=== PATIENT | female | born 1960 | race Caucasian/White ===

== ENCOUNTER 2019-05-16 21:24 | Emergency (ER) | payer MEDICARE, MEDICAID, SELFPAY ==
--- NOTE | 2019-05-16 21:29 | ED_ITS ---
Entered by Vonda Tarango, acting as scribe for Aracely Bella HPI - Fall General: Chief Complaint: Fall Stated Complaint: FALL Time Seen by Provider: 05/16/19 21:26 Source: family and EMS Mode of arrival: EMS Limitations: altered mental status and physical limitation History of Present Illness: HPI Narrative: Tarsha is a 59-year-old female with severe dementia that is brought in by her daughters after she fell at the skilled nursing. Apparently she got set too far forward and went straight down on her head and hit the ground. It was witnessed and she had no loss of consciousness. She is not vomited. According to her daughters she has acted normal or her normal since this time. The skilled nursing wanted her evaluated here to evaluate for any injuries. The patient cannot give any history as she is severely demented. 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) Fall from: wheelchair Fall witnessed: yes, by living facility staff (skilled nursing [facility]) Place fall occurred: skilled nursing/SNF Loss of consciousness: None Symptoms prior to fall: none Review of Systems General: Reports: ROS unobtainable due to medical condition (Dementia) Physical Exam Narrative: EXAM NARRATIVE: contracted on side chronic Const: COMMON NORMALS: no apparent distress, no limitations, healthy appearing and well nourished EXAM LIMITATIONS: no altered mental status GENERAL APPEARANCE: cooperative, well kempt and well developed ORIENTATION/CONSCIOUSNESS: Yes awake HENMT: COMMON NORMALS: normocephalic, head/scalp atraumatic, hearing grossly normal bilaterally, external ears normal, EAC's normal, external nose normal and moist oral mucous membranes HEAD & SCALP: normal to inspection, normocephalic and atraumatic FACE & SINUS: normal facial exam and face symmetric NOSE: external nose normal and nares normal EXTERNAL EAR: Yes external ears normal EXTERNAL AUDITORY CANAL: EAC's normal MOUTH: oral and palatal mucosa normal and tongue normal Eye: COMMON NORMALS: PERRL, EOMs intact bilaterally, conjunctivae normal and no scleral icterus GENERAL EYE: normal appearance of both eyes and normal light reflex CONJUNCTIVA: Yes conjunctivae normal SCLERA: sclerae normal CORNEA: Yes corneas normal PUPIL: Yes PERRL DIRECT OPHTHALMOSCOPY: Yes normal light reflex Neck/C-Spine: COMMON NORMALS: full ROM, no lymphadenopathy, supple, no meningeal signs and no JVD GENERAL: Yes normal visual inspection and Yes trachea midline CERVICAL SPINE: Yes cervical ROM normal Chest: COMMONS NORMALS: inspection of chest normal and palpation of chest norm al Resp: COMMON NORMALS: normal respiratory effort, no retractions, no use of accessory muscles and clear to auscultation bilaterally EFFORT & INSPECTION: Yes able to speak in complete sentences AUSCULTATION: clear to auscultation bilaterally Cardio: COMMON NORMALS: no JVD, regular rate, regular rhythm, S1 normal heart sound, S2 normal heart sound, no gallops, no clicks, no murmurs and no rub JUGULAR VENOUS DISTENTION: no JVD RATE: regular rate RHYTHM: regular rhythm HEART SOUNDS: S1 normal and S2 normal GI: COMMON NORMALS: soft to palpation, non-tender, no hepatosplenomegaly and no masses INSPECTION: Yes normal to inspection PALPATION: Yes soft and Yes no hepatosplenomegaly : COMMON NORMALS: Yes no CVA tenderness BLADDER/KIDNEY EXAM: Yes no CVA tenderness Back/Pelvis: COMMON NORMALS: no CVA tenderness, thoracic and lumbar spine normal to inspection, no thoracic nor lumbar tenderness and thoraco-lumbar ROM normal Extremity: COMMON NORMALS: normal to inspection, full ROM, normal capillary refill, no joint enlargement, no clubbing, cyanosis or edema and no calf tenderness Neuro: COMMON NORMALS: CN's II-XII intact bilaterally, moves all extremities, no focal motor deficits and no sensory deficits noted MENINGEAL SIGNS: Yes no meningeal signs Psych: COMMON NORMALS: mental status grossly normal, thought process normal, cooperative, affect normal, speech normal and activity/motor behavior normal APPEARANCE: Yes well kempt SPEECH: Yes normal speech THOUGHT PROCESS: normal thought process Skin: COMMON NORMALS: no rashes or lesions noted, skin turgor normal, no jaundice, no petechiae and no mottling GENERAL SKIN EXAM: no rashes or lesions noted and turgor normal Course Vital Signs: Vital signs: Vital Signs Temperature 97.4 F L 05/16/19 21:56 Pulse Rate 64 05/16/19 22:00 Respiratory Rate 16 05/16/19 22:00 Blood Pressure 101/77 05/16/19 22:00 Pulse Oximetry 100 05/16/19 22:00 MDM - Fall MDM Narrative: Medical decision making narrative: The patient has no sign or symptom of injury on exam or per her CT or x-rays. Her family is relieved to hear this. They agree with letting her go back to the skilled nursing. Imaging Data^: CXR: My impression: No acute cardiopulmonary findings Other Xray: My impression: Pelvis -no acute fractures or dislocations CT Head: Radiologist's impression: [address] [address] [address] Scan Report Signed Patient: Tarsha Schmidt Unit #: [id number] : 1960 Age/Sex: 59 / F ADM Date: 05/16/19 Loc: ER Room/Bed: Attending Dr: Ordering Provider/Ordering MD: Aracely Bella DO Date of Service: 05/16/19 Procedure(s): CT head wo con* [id number] Accession Number(s): [id number] Report Number: [id number] PROCEDURE INFORMATION: Exam: CT Head Without Contrast Exam date and time: 05/16/2019 9:57 PM Age: 59 years old Clinical indication: Injury or trauma; Fall; Initial encounter; Concussion / head injury; Additional info: Ansari/ams TECHNIQUE: Imaging protocol: Computed tomography of the head without contrast. Total DLP: 1144.96 mGy-cm Radiation optimization: All CT scans at this facility use at least one of these dose optimization techniques: automated exposure control; mA and/or kV adjustment per patient size (includes targeted exams where dose is matched to clinical indication); or iterative reconstruction. COMPARISON: CT head wo con* [id number] 11/04/2018 8:37 AM FINDINGS: Brain: Moderate diffuse cortical volume loss. Moderate-severe hypodensities in supratentorial periventricular and subcortical white matter. No intracranial hemorrhage. Ventricles: Stable enlargement of the 3rd and lateral ventricles including the temporal horns. Bones/joints: Unremarkable. No acute fracture. Sinuses: Visualized sinuses are unremarkable. No fluid levels. Mastoid air cells: Visualized mastoid air cells are well aerated. Soft tissues: Calcified sebaceous cysts in the scalp. CT/CT head wo con* [id number] IMPRESSION: 1. No acute intracranial abnormality identified. 2. Moderate-severe microangiopathy. 3. Stable enlargement of the ventricles could represent central atrophy versus normal pressure hydrocephalus. Radiation Dose CTDIVOL = (mGy): DLP = 1144.96 (mGy-cm) Dictated By: Alberto Fitch Signed By: Alberto Fitch Signed Date/Time: 05/16/192233 DD/ 32 Discharge Plan Discharge Patient Disposition: [facility] Clinical Impression: Fall Qualifiers: Encounter type: initial encounter Qualified Code(s): W19.XXXA - Unspecified fall, initial encounter Condition: Stable Prescriptions: No Action multivitamin Tablet 1 tab PO DAILY RF: 0 divalproex 250 mg Tablet,Delayed Release (Dr/Ec) 250 mg PO BID RF: 0 donepezil 10 mg Tablet 10 mg PO DAILY RF: 0 Senna-S 8.6-50 mg Tablet 8.6 - 50 tab PO BID PRN (Reason: Constipation) RF: 0 Xanax 0.5 mg Tablet 0.5 mg PO BID RF: 0 venlafaxine 50 mg Tablet 150 mg PO BID RF: 0 docusate sodium 100 mg Tablet 100 mg PO BID RF: 0 levetiracetam 100 mg/mL Solution 750 mg PO BID RF: 0 memantine 10 mg Tablet 10 mg PO BID RF: 0 quetiapine 50 mg Tablet 50 mg PO DAILY RF: 0 Discharge Orders: Discharge Order (Routine); Ordered 05/16/19 Ordered By: Aracely Bella Referrals: Kit Valenzuela [Primary Care Provider] - 4-7 days Discharge Diet: Usual diet Discharge Activity: Resume usual activity Patient Instructions: Concussion (ED) Activity Restrictions/Additional Instructions: Please return to the ER immediately for any of the signs or symptoms listed on your discharge instruction sheets, worsening/changing of your symptoms, you are not getting better as quickly as expected, or for ANY other cause or concerns. Coding Level of Care Code ED Community Engagement Leader for Chg Fwd Exam Problem Focused The documentation recorded by the Sukhdeep mccann Bridget Annette, accurately reflects the service I personally performed and the decisions made by Shayne major Eli N
--- NOTE | 2019-05-16 21:34 | XR_ITS ---
WS: [id number] Pelvis, AP view, 05/16/2019 Clinical Data: FALL Comparison: None. Findings: No fractures or dislocations are seen. The SI joints and pubic symphysis are intact. The soft tissues are not remarkable. The hips show no fracture There is a large amount of fecal material in the colon. XR/XR pelvis 1-2V* [id number] Impression: Negative for fracture.
--- NOTE | 2019-05-16 21:34 | XR_ITS ---
WS: [id number] Portable AP supine chest, 05/16/2019 Clinical Data: cough Comparison: Portable chest, 11/04/2018. Findings: No nodules, masses or effusions are seen. The heart is normal. The pulmonary vascularity is not increased. No pneumonia or pneumothorax is seen. The aortic arch and descending aorta are tortuo us. XR/XR chest 1V portable [id number] Impression: Atherosclerosis.
--- NOTE | 2019-05-16 21:34 | CTR_ITS ---
PROCEDURE INFORMATION: Exam: CT Head Without Contrast Exam date and time: 05/16/2019 9:57 PM Age: 59 years old Clinical indication: Injury or trauma; Fall; Initial encounter; Concussion / head injury; Additional info: Ansari/ams TECHNIQUE: Imaging protocol: Computed tomography of the head without contrast. Total DLP: 1144.96 mGy-cm Radiation optimization: All CT scans at this facility use at least one of these dose optimization techniques: automated exposure control; mA and/or kV adjustment per patient size (includes targeted exams where dose is matched to clinical indication); or iterative reconstruction. COMPARISON: CT head wo con* [id number] 11/04/2018 8:37 AM FINDINGS: Brain: Moderate diffuse cortical volume loss. Moderate-severe hypodensities in supratentorial periventricular and subcortical white matter. No intracranial hemorrhage. Ventricles: Stable enlargement of the 3rd and lateral ventricles including the temporal horns. Bones/joints: Unremarkable. No acute fracture. Sinuses: Visualized sinuses are unremarkable. No fluid levels. Mastoid air cells: Visualized mastoid air cells are well aerated. Soft tissues: Calcified sebaceous cysts in the scalp. CT/CT head wo con* [id number] IMPRESSION: 1. No acute intracranial abnormality identified. 2. Moderate-severe microangiopathy. 3. Stable enlargement of the ventricles could represent central atrophy versus normal pressure hydrocephalus. Radiation Dose CTDIVOL = (mGy): DLP = 1144.96 (mGy-cm)
--- NOTE | 2019-05-16 21:40 | PC.NURSE ---
Introduced self to patient and initiated vital signs. Pt is non-verbal and in contracted stated. Pt daughter states that the reason for the ER visit today is due to patient falling onto her head from wheel chair while in NH. Reassured patient of needs and will continue to monitor.
[2019-05-16 21:56] VITALS: BP 101/77; PULSE 52; RESP 16; TEMP 36.3; O2SAT 97; BMI 18.5
[2019-05-16 22:00] VITALS: BP 101/77; PULSE 64; RESP 16; O2SAT 100
[2019-05-17 02:00] VITALS: BP 110/64; PULSE 65; RESP 18; O2SAT 97
--- NOTE | 2019-05-17 02:26 | PC.NURSE ---
EMS is on site for transport.
== END 2019-05-17 02:27 | disposition skilled nursing facility (03) ==
PROVIDERS: Emergency Provider Emergency Medicine; Family Provider Family Medicine; PCP Family Medicine
DX: R41.82 Altered mental status, unspecified (principal); W19.XXXA Unspecified fall, initial encounter; Y92.129 Unspecified place in nursing home as the place of occurrence of the external cause
CPT/HCPCS: 70450; 71045; 72170; 96372; 99281; 99283

== ENCOUNTER 2020-04-14 08:22 | Inpatient (IN) | payer MEDICARE, MEDICAID, SELFPAY ==
[2020-04-14] VITALS (9 sets, daily range): BP systolic 95–130; BP diastolic 71–92; PULSE 86–102; RESP 15–18; TEMP 36.7–37.1; O2SAT 92–98; BMI 13.7
--- NOTE | 2020-04-14 08:32 | CTR_ITS ---
PROCEDURE INFORMATION: Exam: CT Head Without Contrast Exam date and time: 04/14/2020 8:37 AM Age: 60 years old Clinical indication: Other: AMS, low BP, low o2 TECHNIQUE: Imaging protocol: Computed tomography of the head without contrast. Radiation optimization: All CT scans at this facility use at least one of these dose optimization techniques: automated exposure control; mA and/or kV adjustment per patient size (includes targeted exams where dose is matched to clinical indication); or iterative reconstruction. COMPARISON: CT head wo con* [id number] 05/16/2019 10:10 PM RADIATION DOSE METRICS: Total DLP (mGy-cm): 719.79 FINDINGS: Brain: There is no acute intracranial hemorrhage. There is lucency in the cerebral white matter, likely microvascular disease although non-specific. Guerra white differentiation is intact. There are no extra-axial fluid collections. No evidence of mass. There is no mass effect or midline shift. Cerebral ventricles: The ventricles and sulci are enlarged, consistent with volume loss / atrophy, greater than expected for age in slightly greater centrally but stable. Bones/joints: No acute fracture. Paranasal sinuses: Visualized sinuses are unremarkable. No fluid levels. Mastoid air cells: No significant mastoid effusion. Vasculature: There is vascular calcification. Soft tissues: Multiple scalp lesions likely sebaceous cyst. CT/CT head wo con* [id number] IMPRESSION: 1. No evidence of acute intracranial abnormality. No evidence of acute infarction, hemorrhage, or mass. 2. Atrophy and microvascular disease. Radiation Dose CTDIVOL = (mGy): DLP = 719.79 (mGy-cm)
--- NOTE | 2020-04-14 08:32 | XR_ITS ---
WS: [id number] Exam: XR chest 1V portable [id number] Date/Time of Exam: 04/14/2020 9:13 AM Reason For Exam: dyspnea/cough Comparison 05/16/2019. The lungs are hyperinflated and clear. The heart is small. No pleural effusions. The mediastinum is n ot widened. Old right clavicle fracture. No change. XR/XR chest 1V portable [id number] IMPRESSION: 1. Pulmonary hyperinflation which may indicate obstructive lung disease. No acu te process.
--- NOTE | 2020-04-14 08:39 | ED_ITS ---
HPI - General Adult General: Chief complaint: General Medical Stated complaint: AMS, LOW BP, LOW O2 Time Seen by Provider: 04/14/20 08:28 History of Present Illness: HPI narrative: 60-year-old female brought in by EMS from local senior living. Report was the patient was hypoxic and hypotensive at the senior living. EMS reported that her oxygen was on their arrival. Since arriving here her oxygen sats have been in the mid and upper 90s with systolic pressures 120s to 130s. She is not on any oxygen supplementation. According to paperwork from the senior living she has early Alzheimer's dementia and is a DNR. Additionally she tested positive for Covid on 02/24/2020. She will look towards a voice but does not vocalize any response and does not follow any commands. Patient is extremely cachectic. She does not appear to be in any respiratory distress. Onset (ago): minute(s) Review of Systems General: Reports: ROS unobtainable due to medical condition and ROS unobtainable due to mental status PFSH ED PFSH: Medical History (Updated 04/14/20 @ 13:23 by Akin Gallegos MD) Adult failure to thrive Constipation COVID-19 Tested positive on 02/24/2020 senior living Early onset Alzheimer's dementia Fibromyalgia Seizure disorder Physical Exam Const: COMMON NORMALS: no acute distress GENERAL APPEARANCE: cooperative and comfortable Neck/C-Spine: COMMON NORMALS: no JVD Resp: COMMON NORMALS: normal respiratory effort, No retractions, No use of accessory muscles and clear to auscultation bilaterally AUSCULTATION: clear to auscultation bilaterally Cardio: COMMON NORMALS: no JVD, regular rate, regular rhythm and No murmurs present (Cardio) RATE: regular rate RHYTHM: regular rhythm GI: COMMON NORMALS: Soft to palpation and No hepatosplenomegaly present AUSCULTATION: Yes normoactive bowel sounds PALPATION: Yes Soft to palpation, No Tenderness to palpation present (GI), No Guarding due to palpation present (GI) and Yes No hepatosplenomegaly present Extremity: COMMON NORMALS: normal to inspection, capillary refill normal, no clubbing, cyanosis or edema, no calf tenderness and no pedal edema Skin: COMMON NORMALS: no rashes or lesions noted GENERAL SKIN EXAM: no rashes or lesions noted Course Vital Signs: Vital signs: Vital Signs Temperature 97.8 F 12/30/20 08:00 Pulse Rate 90 04/15/20 08:00 Respiratory Rate 18 04/15/20 08:00 Blood Pressure 128/74 04/15/20 08:00 Pulse Oximetry 95 04/15/20 08:00 MDM - General Adult MDM Narrative: Medical decision making narrative: Patient unresponsive other than just looking towards verbal stimuli. Her pressure is oxygen saturations have been good. Discussed Dr. Pitts he contacted the senior living they reported she had seizures 8 days ago and has been essentially altered since then. She is a DNI he is going contact family to see how aggressive they want to be in the meantime we will hydrate her try to improve her hyper natremia and her acute kidney injury. Lab Data: Labs: Lab Results 04/14/20 04/14/20 04/14/20 Range/Units 08:40 08:40 08:40 WBC 17.2 H (4.0-10.0) 10^3/ uL RBC 5.30 (4.1-5.3) 10^6/u L Hgb 17.2 H (11.5-15.3) g/dL Hct 56.2 H (37.0-47.0) % MCV 106.0 H (81-99) fL MCH 32.5 (28.0-34.0) pg MCHC 30.6 (30.0-36.0) g/dL RDW 11.9 L (12.1-15.1) % Plt Count 279 (130-400) 10^3/c mm MPV 12.8 H (7.4-10.4) fL Neut % (Auto) 80.4 % Lymph % (Auto) 12.8 % Bracken % (Auto) 5.7 % Eos % (Auto) 0.2 % Baso % (Auto) 0.4 % Neut # (Auto) 13.79 H (1.8-7.7) 10^3/u L Lymph # (Auto) 2.2 (0.8-4.8) 10^3/u L Bracken # (Auto) 1.0 H (0.2-0.9) 10^3/u L Eos # (Auto) 0.0 (0.0-0.8) 10^3/u L Baso # (Auto) 0.1 (0.0-0.1) 10^3/u L Nucleated RBC % (a uto) 0.1 % Nucleated RBCs # 0.0 /100WBC Specimen Type Sample Site ABG pH (7.35-7.45) ABG pCO2 (35-45) mmHg ABG pO2 (80.0-100.0) mmH g ABG HCO3 (22-26) mmol/L ABG O2 Saturation ABG Base Excess (-2.0-2.0) mmol/ L Rodger Test A-a O2 Gradient (5-10) mmHg Hematocrit (37-47) % Hgb O2 Saturation (95-100) % Carboxyhemoglobin (0.4-20.1) %THgb Methemoglobin (0.4-1.5) % Total Hemoglobin (12-16) g/dL Ionized Calcium (1.1-1.4) mmol/L O2 Delivery Device FiO2 % Cook Room Supervisor ID Sodium 166 H* (136-145) mmol/L Potassium 3.7 (3.5-5.1) mmol/L Chloride 118 H (98-107) mmol/L Carbon Dioxide 31 H (22-29) mmol/L Anion Gap 20.7 H (5-19) BUN 67 H (8-23) mg/dL Creatinine 2.3 H (0.5-0.9) mg/dL GFR Calculation 21.5 L (90-130) mL/min Glucose 128 H (65-115) mg/dL Calculated Osmolal ity 363 H (285-295) mOsm/k g Lactic Acid 2.5 H (0.5-2.2) mmol/L Calcium 9.8 (8.5-10.5) mg/dL Total Bilirubin 0.8 (0.15-1.2) mg/dL AST 46 H (0-32) U/L ALT 61 H (0-33) U/L Alkaline Phosphata se 104 (35-105) IU/L Creatine Kinase 253 H (26-192) U/L Total Protein 7.9 (6.6-8.7) g/dL Albumin 4.4 (3.5-5.2) g/dL Globulin 3.5 (1.3-4.6) g/dL 04/14/20 Range/Units 09:07 WBC (4.0-10.0) 10^3/ uL RBC (4.1-5.3) 10^6/u L Hgb (11.5-15.3) g/dL Hct (37.0-47.0) % MCV (81-99) fL MCH (28.0-34.0) pg MCHC (30.0-36.0) g/dL RDW (12.1-15.1) % Plt Count (130-400) 10^3/c mm MPV (7.4-10.4) fL Neut % (Auto) % Lymph % (Auto) % Bracken % (Auto) % Eos % (Auto) % Baso % (Auto) % Neut # (Auto) (1.8-7.7) 10^3/u L Lymph # (Auto) (0.8-4.8) 10^3/u L Bracken # (Auto) (0.2-0.9) 10^3/u L Eos # (Auto) (0.0-0.8) 10^3/u L Baso # (Auto) (0.0-0.1) 10^3/u L Nucleated RBC % (a uto) % Nucleated RBCs # /100WBC Specimen Type Arterial Sample Site Brachial, left ABG pH 7.51 H (7.35-7.45) ABG pCO2 36.7 (35-45) mmHg ABG pO2 65.8 L (80.0-100.0) mmH g ABG HCO3 29.5 H (22-26) mmol/L ABG O2 Saturation 92.9 ABG Base Excess 6.3 H (-2.0-2.0) mmol/ L Rodger Test Pos A-a O2 Gradient 5.2 (5-10) mmHg Hematocrit 50.6 H (37-47) % Hgb O2 Saturation 91.5 L (95-100) % Carboxyhemoglobin 0.9 (0.4-20.1) %THgb Methemoglobin 0.6 (0.4-1.5) % Total Hemoglobin 16.5 H (12-16) g/dL Ionized Calcium 1.2 (1.1-1.4) mmol/L O2 Delivery Device Room air FiO2 21.0 % Cook Room Supervisor ID Monro Sodium 167.0 H (136-145) mmol/L Potassium 3.2 L (3.5-5.1) mmol/L Chloride (98-107) mmol/L Carbon Dioxide (22-29) mmol/L Anion Gap (5-19) BUN (8-23) mg/dL Creatinine (0.5-0.9) mg/dL GFR Calculation (90-130) mL/min Glucose 135.0 H (65-115) mg/dL Calculated Osmolal ity (285-295) mOsm/k g Lactic Acid (0.5-2.2) mmol/L Calcium (8.5-10.5) mg/dL Total Bilirubin (0.15-1.2) mg/dL AST (0-32) U/L ALT (0-33) U/L Alkaline Phosphata se (35-105) IU/L Creatine Kinase (26-192) U/L Total Protein (6.6-8.7) g/dL Albumin (3.5-5.2) g/dL Globulin (1.3-4.6) g/dL Discharge Plan Discharge Patient Disposition: Admitted As Inpatient Admit Provider: Akin Gallegos Clinical Impression: Hypernatremia, Early onset Alzheimer's dementia, Adult failure to thrive, MADELINE (acute kidney injury) Condition: Serious Discharge Activity: Increase activity as tolerated Coding Level of Care Code ED Gate Supervisor for Clarke Fwd Exam Detailed
[2020-04-14 08:55] LABS: Basophils # 0.1 10^3/uL (0.0-0.1); Basophils % 0.4 %; Eosinophils % 0.2 %; Hematocrit 56.2 % (37.0-47.0); Hemoglobin 17.2 g/dL (11.5-15.3); Lymphocytes # 2.2 10^3/uL (0.8-4.8); Lymphocytes % 12.8 %; Mean Corpuscular HGB Conc 30.6 g/dL (30.0-36.0); Mean Corpuscular Hemoglobin 32.5 pg (28.0-34.0); Mean Platelet Volume 12.8 fL (7.4-10.4); Monocytes % 5.7 %; Neutrophils # 13.79 10^3/uL (1.8-7.7); Neutrophils % 80.4 %; Nucleated Red Blood Cells % 0.1 %; Platelet Count 279 10^3/cmm (130-400); Red Cell Distribution Width 11.9 % (12.1-15.1); White Blood Count 17.2 10^3/uL (4.0-10.0)
[2020-04-14 09:11] LABS: Alanine Aminotransferase 61 U/L (0-33); Albumin Level 4.4 g/dL (3.5-5.2); Alkaline Phosphatase 104 IU/L (35-105); Anion Gap 20.7 (5-19); Aspartate Amino Transferase 46 U/L (0-32); Blood Urea Nitrogen 67 mg/dL (8-23); Calcium 9.8 mg/dL (8.5-10.5); Carbon Dioxide 31 mmol/L (22-29); Chloride 118 mmol/L (98-107); Creatine Phosphokinase 253 U/L (26-192); Globulin 3.5 g/dL (1.3-4.6); Glomerular Filtration Rate 21.5 mL/min (90-130); Glucose 128 mg/dL (65-115); Lactic Sepsis W/Reflex 2.5 mmol/L (0.5-2.2); Osmolality Calculated 363 mOsm/kg (285-295); Potassium 3.7 mmol/L (3.5-5.1); Total Bilirubin 0.8 mg/dL (0.15-1.2); Total Protein 7.9 g/dL (6.6-8.7)
[2020-04-14 09:14] LABS: Sodium 166 mmol/L (136-145)
--- NOTE | 2020-04-14 09:14 | ECG_ITS ---
[facility] Test Date: 2020-04-14 Pat Name: Tarsha Schmidt Department: Room: Gender: Female Mortgage Funder: : 1960 Requested By: Aden Kahn Order Number: [id number] Carolyn MD: Tj Johnston M.D. Measurements Intervals Equality Rate: 96 P: 13 NH: 107 QRS: -21 QRSD: 72 T: 84 QT: 402 QTc: 510 Interpretive Statements SINUS RHYTHM WITH SHORT NH INTERVAL SEPTAL MYOCARDIAL INFARCTION , PROBABLY OLD [40+ ms Q WAVE IN V1/V2] MODERATE T-WAVE ABNORMALITY, CONSIDER LATERAL ISCHEMIA [-0.1+ mV T WAVE IN I/aVL/V5/V6] Compared to ECG 11/04/2018 09:22:22 Short NH interval now present Myocardial infarct finding now present T-wave abnormality now present Possible ischemia now present Electronically Signed On 04-14-2020 23:46:22 ACQUISITION CONSULTANT by Tj Johnston M.D. [id number]
[2020-04-14 09:20] LABS: ABG PCO2 36.7 mmHg (35-45); ABG PH Result 7.51 (7.35-7.45); Alveolar-Arterial Oxygen Gradi 5.2 mmHg (5-10); Arterial Blood Gas Hematocrit 50.6 % (37-47); Base Excess ABG 6.3 mmol/L (-2.0-2.0); Blood Gas Allen Test Pos; Blood Gas Operator Identificat MONRO; Blood Gas Sample Site Brachial, left; Blood Gas Sample Type Arterial; Carboxyhemoglobin 0.9 %THgb (0.4-20.1); HCO3 ABG 29.5 mmol/L (22-26); HGB O2 Sat 91.5 % (95-100); Ionized Calcium Level - ABG 1.2 mmol/L (1.1-1.4); Methemoglobin 0.6 % (0.4-1.5); Oxygen Device ROOM AIR; Oxygen Saturation ABG 92.9; PO2 ABG 65.8 mmHg (80.0-100.0); Potassium Level - ABG 3.2 mmol/L (3.5-5.0); Total Hemoglobin 16.5 g/dL (12-16)
[2020-04-14] MEDS: sodium chloride 0.45% 1,000 ML 1000 ML IV (10:22)
[2020-04-14 10:40] LABS: Reflex Lactate Order REFLEX LACTIC ORDERD
--- NOTE | 2020-04-14 11:33 | PC.NURSE ---
Called to give report. Room not clean
--- NOTE | 2020-04-14 12:02 | PC.NURSE ---
Lab has called after they collected a lactate, which hemolyzed. They will be recollecting the sample.
--- NOTE | 2020-04-14 12:54 | PM.HP ---
Providers/Chief Complaint Admitting Physician: Akin Gallegos MD Primary Care Provider: Kit Valenzuela Chief Complaint: AMS, LOW BP, LOW O2 History of Present Illness Tarsha Schmidt is a 60 year old female [facility] patient who presented to the emergency room with decreased responsiveness, decreased p.o. intake gradually increasing for the last 8 days. Patient cannot give a history. History is obtained through collateral sources such as daughter, [facility] staff, ER physician. Apparently 8 days ago she had several seizures at the nursing facility and her overall neurologic status has declined since then. It is unknown how long the seizures were. Prior to them, she would open her eyes and smile. She was unable to ambulate. Nursing staff would have to feed her. Since that time she is gradually taken less and less food, and been lethargic. No fever, cough has been noted. There is been concern with infection but no evidence of that on laboratory investigation done at the nursing facility. Family confirms the patient is DNR. They would like to attempt to correct her sodium abnormality, hydrate her and see how her renal function response. They are not sure, if they would ever want a feeding tube. Review of Systems General: Reports: ROS unobtainable due to mental status (Severe dementia) Medications/Allergies Home Medications Medication Instructions Recorded Confirmed Last Taken Type alprazolam [Xanax] 0.5 mg PO BID@0800,199905/16/19 04/14/20 04/13/20 History divalproex 250 mg PO BID@0800,199905/16/19 04/14/20 04/13/20 History docusate sodium 100 mg PO BID@0800,199905/16/19 04/14/20 04/13/20 History donepezil 10 mg PO DAILY@199905/16/19 04/14/20 04/13/20 History levetiracetam 750 mg PO BID@0800,199905/16/19 04/14/20 04/13/20 History memantine 10 mg PO BID@0800,199905/16/19 04/14/20 04/13/20 History multivitamin 1 tab PO DAILY@0800 05/16/19 04/14/20 04/13/20 History quetiapine 50 mg PO DAILY@199905/16/19 04/14/20 04/13/20 History sennosides-docusate sodium 8.6 - 50 tab PO BID PRN 05/16/19 04/14/20 04/13/20 History [Senna-S] venlafaxine 150 mg PO BID@799,199905/16/19 04/14/20 04/13/20 History acetaminophen 650 mg NC Q6H PRN 04/14/20 04/14/20 Unknown History acetaminophen [Tylenol] 325 mg PO Q6H PRN 04/14/20 04/14/20 Unknown History bftvsstbmf-lhpolyi-rrih chlor See Rx Instructions .ROUTE .COMPLEX 04/14/20 04/14/20 04/13/20 17:00 History [Orajel 3X Mouth Sores] bisacodyl 10 mg NC DAILY PRN 04/14/20 04/14/20 04/13/20 History food supplemt, lactose-reduced 1 ea PO TID@0800,1400,199904/14/20 04/14/20 04/13/20 History [TwoCal HN] lorazepam 2 mg PO DAILY PRN 04/14/20 04/14/20 Unknown History magnesium hydroxide [Milk of 5 ml PO DAILY PRN 04/14/20 04/14/20 Unknown History Magnesia] ondansetron HCl 4 mg PO Q6H PRN 04/14/20 04/14/20 Unknown History peg 400-propylene glycol [Systane 1 drp OPHTHALMIC (EYE) TID PRN 04/14/20 04/14/20 Unknown History (propylene glycol)] polyethylene glycol 3350 [Miralax] 17 g PO DAILY PRN 04/14/20 04/14/20 Unknown History sodium phosphates [Enema 118 ml NC DAILY PRN 04/14/20 04/14/20 Unknown History Disposable] tramadol 50 mg PO TID@0800,1400,199904/14/20 04/14/20 04/13/20 History Allergies Allergy/AdvReac Type Severity Reaction Status Date / Time No Known Allergies Allergy Verified 04/14/20 08:31 PFSH Acute PFSH: Medical History (Updated 04/14/20 @ 13:23 by Akin Gallegos MD) Adult failure to thrive Constipation COVID-19 Tested positive on 02/24/2020 [facility] Early onset Alzheimer's dementia Fibromyalgia Seizure disorder Supplemental PFSH Information: Unable to obtain significant surgical history, family history or social history from the patient secondary to her severe dementia. Vitals/I&O/Wt Last Vital Signs Temp 98.0 F 04/14/20 08:24 Pulse 89 04/14/20 12:39 Resp 16 04/14/20 12:39 BP 95/79 04/14/20 12:39 Pulse Ox 95 04/14/20 12:39 Weight last 48 hrs Weight 36.287 kg Physical Exam Narrative: EXAM NARRATIVE: Cachectic appearing female, who opens eyes to verbal stimuli but does not speak. HEENT: Pupils equally round. Oropharynx filled with thickened saliva. Neck is supple, no lymphadenopathy or thyromegaly Cardiovascular regular rate and rhythm without murmur, no S3 or S4 Lungs clear no wheezing or crackles Abdomen is soft nontender, scaphoid, no obvious organomegaly was deferred Extremities no cyanosis clubbing or edema, cap refill brisk Skin no rash Neuro: Will not cooperate with exam. Opens eyes to verbal stimuli. Urinary Catheter Management^: Lyon: Cath Placed During This Visit: no Data : 04/14/20 08:40 04/14/20 08:40 Micro: Microbiology 04/14/20 10:03 Blood Culture - Preliminary Blood SPECIMEN COLLECTED 04/14/20 08:40 Blood Culture - Preliminary Blood SPECIMEN COLLECTED Other data: pH 7.51, PCO2 37, PO2 66 Lactic acid elevated at 2.5 AST and ALT slightly elevated at 46 and 61. CK elevated at 253. Albumin 4.4 Urinalysis not yet obtained Chest x-ray reviewed by me no obvious infiltrate CT head no acute disease EKG demonstrates sinus rhythm, left axis deviation, nonspecific ST-T wave flattening V4 through 6 A&P Assessment and plan (1) Hypernatremia: Secondary to dehydration Initiate half-normal saline at 100 cc an hour Recheck BMP. Try to lower sodium by approximately 5-7 in the next 12 hours. Status: Acute (2) MADELINE (acute kidney injury): Rehydrate Follow renal function closely Lyon Check urinalysis, to rule out UTI Status: Acute (3) Early onset Alzheimer's dementia: Severe underlying dementia. Discussed in detail patient's care directives with family. For now they want fluids. I confirmed CODE STATUS. Status: Acute Additional A&P Information Leukocytosis. Blood culture. Check urinalysis. History of seizure disorder. 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
[2020-04-14 14:14] LABS: Lactate (Lactic Acid level) 3.1 mmol/L (0.5-2.2)
[2020-04-14] MEDS: sodium chloride 0.45% 1,000 ML 100 ML IV (14:15)
[2020-04-14 14:47] LABS: Bilirubin Urine 1+ (Negative); Blood Urine Neg (Negative); Glucose Urine UA Norm (Normal); Ketones Urine 1+ (Negative); Nitrate Urine Negative (Negative); Protein Urine 1+ (Negative); Specific Gravity, Urine 1.025 (1.005-1.030); Urine Appearance Clear (CLEAR); Urine Color Straw (Yellow); pH Urine 5 (5-7)
[2020-04-14 14:48] LABS: Add Urine Culture? No; Add Urine Microscopic? YES; Amorphous Sediment Urine 1+ /hpf; Bacteria Urine TRACE /hpf; Leukocyte Esterase Urine Negative (Negative); Mucus Urine 1+ /hpf; RBC Urine 0-4 /hpf (0-2); Squamous Epithelial Cell Urine 0-4 /hpf (0-5); Urobilinogen Urine 4 mg/dL (Negative); WBC Urine 0-4 /hpf (0-5)
[2020-04-14] MEDS: levETIRAcetam 750 MG in sodium chloride 0.9% (100 ml) 100 ML 430 MG IV (15:20)
[2020-04-14] MEDS: heparin 5,000 unit/mL INJ 1 mL 5000 UNIT SUBCUT (15:20)
[2020-04-14 15:35] LABS: Reflex Lactate Order REFLEX LACTIC ORDERD
[2020-04-14] MEDS: cefTRIAXone 1,000 MG in sodium chloride 0.9% (plus) 50 ML 100 MG IV (17:17)
--- NOTE | 2020-04-14 17:33 | PC.NURSE ---
Patient approved to have multiple visitors to discuss plan of care with Dr. Gallegos tomorrow. Family at bedside states that there will be 4 people present for this meeting and they will be here at 10 am.
[2020-04-14 18:24] LABS: Anion Gap 13.9 (5-19); Blood Urea Nitrogen 61 mg/dL (8-23); Calcium 8.7 mg/dL (8.5-10.5); Carbon Dioxide 29 mmol/L (22-29); Chloride 121 mmol/L (98-107); Glomerular Filtration Rate 45.5 mL/min (90-130); Glucose 114 mg/dL (65-115); Lactic Acid level (Lactate) 1.2 mmol/L (0.5-2.2); Osmolality Calculated 350 mOsm/kg (285-295)
[2020-04-14 18:48] LABS: Potassium 2.9 mmol/L (3.5-5.1); Sodium 161 mmol/L (136-145)
[2020-04-14 19:37] LABS: Magnesium 2.5 mg/dL (1.7-2.3)
[2020-04-14] MEDS: lidocaine 1% 5 ML in potassium chloride premix 100 ML 25 ML IV (23:43)
[2020-04-15 00:03] VITALS: BP 130/79; PULSE 88; RESP 16; TEMP 36.9; O2SAT 96
[2020-04-15] MEDS: levETIRAcetam 750 MG in sodium chloride 0.9% (100 ml) 100 ML 430 MG IV (01:50)
[2020-04-15] MEDS: heparin 5,000 unit/mL INJ 1 mL 5000 UNIT SUBCUT (01:51)
[2020-04-15] MEDS: sodium chloride 0.45% 1,000 ML 100 ML IV (02:07)
[2020-04-15 04:00] VITALS: BP 132/82; PULSE 84; RESP 18; TEMP 36.6; O2SAT 95
[2020-04-15 05:27] LABS: Basophils # 0.1 10^3/uL (0.0-0.1); Basophils % 0.7 %; Eosinophils # 0.1 10^3/uL (0.0-0.8); Eosinophils % 0.7 %; Hematocrit 45.2 % (37.0-47.0); Hemoglobin 13.8 g/dL (11.5-15.3); Lymphocytes # 2.8 10^3/uL (0.8-4.8); Lymphocytes % 22.9 %; Mean Corpuscular HGB Conc 30.5 g/dL (30.0-36.0); Mean Corpuscular Hemoglobin 32.5 pg (28.0-34.0); Mean Corpuscular Volume 106.4 fL (81-99); Mean Platelet Volume 13.1 fL (7.4-10.4); Monocytes # 0.7 10^3/uL (0.2-0.9); Monocytes % 5.9 %; Neutrophils # 8.44 10^3/uL (1.8-7.7); Neutrophils % 69.1 %; Nucleated Red Blood Cells % 0 %; Platelet Count 194 10^3/cmm (130-400); Red Blood Count 4.25 10^6/uL (4.1-5.3); Red Cell Distribution Width 11.9 % (12.1-15.1); White Blood Count 12.2 10^3/uL (4.0-10.0)
[2020-04-15 06:14] LABS: Glucose Point of Care 91 mg/dL (70-110)
[2020-04-15 06:22] LABS: Alanine Aminotransferase 51 U/L (0-33); Albumin Level 3.3 g/dL (3.5-5.2); Alkaline Phosphatase 79 IU/L (35-105); Anion Gap 14.6 (5-19); Aspartate Amino Transferase 49 U/L (0-32); Blood Urea Nitrogen 47 mg/dL (8-23); Calcium 8.8 mg/dL (8.5-10.5); Carbon Dioxide 29 mmol/L (22-29); Chloride 122 mmol/L (98-107); Globulin 3.1 g/dL (1.3-4.6); Glomerular Filtration Rate 45.5 mL/min (90-130); Glucose 94 mg/dL (65-115); Osmolality Calculated 346 mOsm/kg (285-295); Potassium 3.6 mmol/L (3.5-5.1); Total Bilirubin 0.6 mg/dL (0.15-1.2); Total Protein 6.4 g/dL (6.6-8.7)
[2020-04-15 06:24] LABS: Sodium 162 mmol/L (136-145)
[2020-04-15 07:57] LABS: Magnesium 2.6 mg/dL (1.7-2.3)
[2020-04-15 08:00] VITALS: BP 128/74; PULSE 90; RESP 18; TEMP 36.6; O2SAT 95
[2020-04-15] MEDS: dextrose 5% 1,000 ML 75 ML IV (09:07)
--- NOTE | 2020-04-15 13:36 | P.DS_ITS ---
Discharge Providers Date of Admission: 04/14/20 09:33 Date of Discharge: April 15, 2020 Attending Provider at Admission: Akin Gallegos MD Attending Provider at Discharge: Akin Gallegos MD Primary Care Provider: Kit Mengno Diagnoses at Discharge Discharge Diagnosis (1) Hypernatremia: Status: Acute (2) MADELINE (acute kidney injury): Status: Acute (3) Early onset Alzheimer's dementia: Status: Acute Reason for Visit Reason for Visit: AMS, LOW BP, LOW O2 Hospital Course Hospital Course Tarsha is a 60-year-old white female with severe dementia early onset who presented from the nursing facility not eating or drinking in the last week. She was found to have severe hypernatremia, and acute kidney injury. Hydration was initiated. I talked with the family several times regarding treatment goals. They report the patient's quality of [facility] is very poor at the [facility]. She is not verbal, nonambulatory, has to be fed, and does not recognize family members. She recently has lost quite a bit of weight, and has failure to thrive. Family ultimately decided that they do not want to pursue further care, changing her to comfort and arranging for hospice at the nursing facility. This was arranged on April 15, and discharge orders written. All medicines other than that for comfort were discontinued. Physical Exam Narrative: EXAM NARRATIVE: General exam is a white female who will open eyes to verbal stimuli, otherwise does not respond Cardiovascular regular rate and rhythm Lungs clear Abdomen is scaphoid Extremities no cyanosis clubbing or edema Urinary Catheter Management^: Lyon: Cath Placed During This Visit: no Reason for Continuing Indwelling Catheter: Acute Urinary Retention or Obstruction Discharge Data Data Completed and Pending: Completed Studies During Hospitalization Category Date Time Status CT head wo con* 7 0450 Stat Cat Scan 04/14/20 08:32 Completed XR chest 1V alice ble [id number] Stat Exams 04/14/20 08:32 Completed Pending at discharge Category Date Time Status Blood Culture Sta t Lab 04/14/20 10:03 Results Urine Culture Rou alejandro Lab 04/14/20 14:00 Received Labs from last 24 hours 04/15/20 04/15/20 04/15/20 05:38 04:45 04:45 WBC 12.2 H RBC 4.25 Hgb 13.8 Hct 45.2 MCV 106.4 H MCH 32.5 MCHC 30.5 RDW 11.9 L Plt Count 194 MPV 13.1 H Neut % (Auto) 69.1 Lymph % (Auto) 22.9 [place] % (Auto) 5.9 Eos % (Auto) 0.7 Baso % (Auto) 0.7 Neut # (Auto) 8.44 H Lymph # (Auto) 2.8 [place] # (Auto) 0.7 Eos # (Auto) 0.1 Baso # (Auto) 0.1 Nucleated RBC % (a uto) 0 Nucleated RBCs # 0.0 Sodium 162 H* Potassium 3.6 Chloride 122 H Carbon Dioxide 29 Anion Gap 14.6 BUN 47 H Creatinine 1.2 H GFR Calculation 45.5 L Glucose 94 POC Glucose 91 Calculated Osmolal ity 346 H Lactic Acid (Sepsi s) Lactate Calcium 8.8 Magnesium Total Bilirubin 0.6 AST 49 H ALT 51 H Alkaline Phosphata se 79 Total Protein 6.4 L Albumin 3.3 L Globulin 3.1 Urine Color Urine Appearance Urine pH Ur Specific Gravit y Urine Protein Urine Glucose (UA) Urine Ketones Urine Blood Urine Nitrate Urine Bilirubin Urine Urobilinogen Ur Leukocyte Gaby ase Urine RBC Urine WBC Ur Squamous Epith Cells Amorphous Sediment Urine Bacteria Hyaline Casts Urine Mucus 04/15/20 04/14/20 04/14/20 04:45 17:54 17:54 WBC RBC Hgb Hct MCV MCH MCHC RDW Plt Count MPV Neut % (Auto) Lymph % (Auto) [place] % (Auto) Eos % (Auto) Baso % (Auto) Neut # (Auto) Lymph # (Auto) [place] # (Auto) Eos # (Auto) Baso # (Auto) Nucleated RBC % (a uto) Nucleated RBCs # Sodium 161 H* Potassium 2.9 L D Chloride 121 H Carbon Dioxide 29 Anion Gap 13.9 BUN 61 H Creatinine 1.2 H GFR Calculation 45.5 L Glucose 114 POC Glucose Calculated Osmolal ity 350 H Lactic Acid (Sepsi s) Lactate Calcium 8.7 Magnesium 2.6 H 2.5 H Total Bilirubin AST ALT Alkaline Phosphata se Total Protein Albumin Globulin Urine Color Urine Appearance Urine pH Ur Specific Gravit y Urine Protein Urine Glucose (UA) Urine Ketones Urine Blood Urine Nitrate Urine Bilirubin Urine Urobilinogen Ur Leukocyte Gaby ase Urine RBC Urine WBC Ur Squamous Epith Cells Amorphous Sediment Urine Bacteria Hyaline Casts Urine Mucus 04/14/20 04/14/2020 17:54 15:07 14:00 WBC RBC Hgb Hct MCV MCH MCHC RDW Plt Count MPV Neut % (Auto) Lymph % (Auto) [place] % (Auto) Eos % (Auto) Baso % (Auto) Neut # (Auto) Lymph # (Auto) [place] # (Auto) Eos # (Auto) Baso # (Auto) Nucleated RBC % (a uto) Nucleated RBCs # Sodium Cancelled Potassium Cancelled Chloride Cancelled Carbon Dioxide Cancelled Anion Gap Cancelled BUN Cancelled Creatinine Cancelled GFR Calculation Cancelled Glucose Cancelled POC Glucose Calculated Osmolal ity Cancelled Lactic Acid (Sepsi s) 1.2 Lactate Calcium Cancelled Magnesium Total Bilirubin AST ALT Alkaline Phosphata se Total Protein Albumin Globulin Urine Color Straw Urine Appearance Clear Urine pH 5 Ur Specific Gravit y 1.025 Urine Protein 1+ H Urine Glucose (UA) Norm Urine Ketones 1+ H Urine Blood Neg Urine Nitrate Negative Urine Bilirubin 1+ H Urine Urobilinogen 4 H Ur Leukocyte Gaby ase Negative Urine RBC 0-4 H Urine WBC 0-4 H Ur Squamous Epith Cells 0-4 H Amorphous Sediment 1+ Urine Bacteria Trace Hyaline Casts 5-10 H Urine Mucus 1+ 04/14/20 13:41 WBC RBC Hgb Hct MCV MCH MCHC RDW Plt Count MPV Neut % (Auto) Lymph % (Auto) [place] % (Auto) Eos % (Auto) Baso % (Auto) Neut # (Auto) Lymph # (Auto) [place] # (Auto) Eos # (Auto) Baso # (Auto) Nucleated RBC % (a uto) Nucleated RBCs # Sodium Potassium Chloride Carbon Dioxide Anion Gap BUN Creatinine GFR Calculation Glucose POC Glucose Calculated Osmolal ity Lactic Acid (Sepsi s) Lactate 3.1 H Calcium Magnesium Total Bilirubin AST ALT Alkaline Phosphata se Total Protein Albumin Globulin Urine Color Urine Appearance Urine pH Ur Specific Gravit y Urine Protein Urine Glucose (UA) Urine Ketones Urine Blood Urine Nitrate Urine Bilirubin Urine Urobilinogen Ur Leukocyte Gaby ase Urine RBC Urine WBC Ur Squamous Epith Cells Amorphous Sediment Urine Bacteria Hyaline Casts Urine Mucus Vitals: Last Vital Signs Temp 97.8 F 04/15/20 08:00 Pulse 90 04/15/20 08:00 Resp 18 04/15/20 08:00 BP 128/74 04/15/20 08:00 Pulse Ox 95 04/15/20 08:00 Discharge Plan Discharge Patient Disposition: Xfer SNF Condition: Serious Prescriptions: New morphine concentrate 100 mg/5 mL (20 mg/mL) solution 5 mg PO Q2H PRN (Reason: pain) Qty: 30 RF: 0 Ativan 2 mg/mL solution 1 mg buccal Q4H PRN (Reason: anxiety) Qty: 25 RF: 0 Continued divalproex 250 mg Tablet,Delayed Release (Dr/Ec) 250 mg PO BID@799,1999 RF: 0 levetiracetam 100 mg/mL Solution 750 mg PO BID@799,1999 RF: 0 bisacodyl 10 mg Suppository 10 mg SC DAILY PRN (Reason: Constipation) RF: 0 Orajel 3X Mouth Sores 20-0.1-0.15 % Gel See Rx Instructions .ROUTE .COMPLEX RF: 0 Tylenol 325 mg Tablet 325 mg PO Q6H PRN (Reason: Pain) RF: 0 acetaminophen 650 mg Suppository 650 mg SC Q6H PRN (Reason: fever/pain) RF: 0 ondansetron HCl 4 mg Tablet 4 mg PO Q6H PRN (Reason: nausea/vomiting) RF: 0 Milk of Magnesia 400 mg/5 mL Suspension 5 ml PO DAILY PRN (Reason: Constipation) RF: 0 Enema Disposable 19-7 gram/118 mL Enema 118 ml SC DAILY PRN (Reason: Constipation) RF: 0 Discontinued multivitamin Tablet 1 tab PO DAILY@08 RF: 0 donepezil 10 mg Tablet 10 mg PO DAILY@1999 RF: 0 sennosides-docusate sodium [Senna-S] 8.6-50 mg Tablet 8.6 - 50 tab PO BID PRN (Reason: Constipation) RF: 0 alprazolam [Xanax] 0.5 mg Tablet 0.5 mg PO BID@ RF: 0 venlafaxine 50 mg Tablet 150 mg PO BID@ RF: 0 docusate sodium 100 mg Tablet 100 mg PO BID@ RF: 0 memantine 10 mg Tablet 10 mg PO BID@ RF: 0 quetiapine 50 mg Tablet 50 mg PO DAILY@1999 RF: 0 tramadol 50 mg Tablet 50 mg PO TID@0800,1399,1999 RF: 0 TwoCal HN Liquid 1 ea PO TID@0800,1400,2000 RF: 0 Miralax 17 gram Powder In Packet 17 g PO DAILY PRN (Reason: Constipation) RF: 0 lorazepam 2 mg Tablet 2 mg PO DAILY PRN (Reason: Seizures) RF: 0 Systane (propylene glycol) 0.4-0.3 % Drops 1 drp OPHTHALMIC (EYE) TID PRN (Reason: unknown) RF: 0 Discharge Orders: Discharge Order (Routine); Ordered 04/15/20 Ordered By: Akin Gallegos Referrals: Kit Valenzuela [Primary Care Provider] - Discharge Activity: Increase activity as tolerated Activity Restrictions/Additional Instructions: Discharged on hospice. Liquids if able. 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
[2020-04-15 16:39] VITALS: BP 128/74; PULSE 90; RESP 18; TEMP 36.6; O2SAT 95
== END 2020-04-15 16:41 | disposition hospice, inpatient (51) | DRG 641 ==
LOC: ER 09:39 → MEDSURG 11:59
PROVIDERS: Admitting Provider Internal Medicine; Emergency Provider Family Medicine; PCP Family Medicine; Visit Provider Internal Medicine
DX: E87.0 Hyperosmolality and hypernatremia (principal); Z68.1 Body mass index [BMI] 19.9 or less, adult; N17.9 Acute kidney failure, unspecified; Z86.19 Personal history of other infectious and parasitic diseases; Z66 Do not resuscitate; R62.7 Adult failure to thrive; K59.00 Constipation, unspecified; G30.0 Alzheimer's disease with early onset; F02.80 Dementia in other diseases classified elsewhere, unspecified severity, without behavioral disturbance, psychotic disturbance, mood disturbance, and anxiety; M79.7 Fibromyalgia; G40.909 Epilepsy, unspecified, not intractable, without status epilepticus; E86.0 Dehydration
CPT/HCPCS: 12345; 36415; 36416; 36600; 51702; 70450; 71045; 80048; 80051; 80053; 81001; 82330; 82550; 82805; 82962; 83605; 83735; 85025; 87040; 87086; 93005; 96372; 99283; J0696; J1644; J1953; J3480